=== PATIENT | female | born 1950 | race Caucasian/White ===

== ENCOUNTER → 2021-10-08 | Outpatient (CLI) | payer MEDICARE ==
[~2021-10-08] MED LIST: ASPIRIN E.C. 8181 MG PO; CALCIUM 600MG+D1 TAB PO; CVS SPECTRAVIT1 EA15 PO; EPA FISH OIL1000 MG PO; LEVOXYL0.125 MG PO; ZOCOR 10MG10 MG PO
== END ==
LOC: COL.PUL 12:40
DX: R06.02 Shortness of breath (principal)
CPT/HCPCS: J7674